=== PATIENT | male | born 1965 | race Two or more races ===

== ENCOUNTER 2019-10-15 15:40 | Emergency (ER) | payer MEDICAID ==
[~2019-10-15] VITALS: Ht 170.2 cm; Wt 67.1 kg
[2019-10-15] MEDS ORDERED: ONDANSETRON HCL/PF 4 MG/2 ML VIAL IVP ONE (16:00)
[2019-10-15] MEDS ORDERED: IV NS 0.9% 1,000 ML BAG IV ONE (16:00)
[2019-10-15] MEDS ORDERED: ONDANSETRON HCL/PF 4 MG/2 ML VIAL ONE (16:11)
[2019-10-15 16:17] LABS: BASOPHILS # (AUTO) 0.1 /CMM (0.0-0.2); BASOPHILS % (AUTO) 1.3 % (0.0-2.0); EOSINOPHILS % (AUTO) 0.4 % (0.0-6.0); HEMATOCRIT 43 % (39-51); HEMOGLOBIN 14.2 g/dL (13.5-17.5); LYMPHOCYTES # (AUTO) 2.3 /CMM (0.8-4.8); LYMPHOCYTES % (AUTO) 31.6 % (20.0-44.0); MEAN CORPUSCULAR HGB CONC 33 g/dl (31.0-36.0); MEAN CORPUSCULAR VOLUME 93 fL (80-96); MONOCYTES # (AUTO) 0.6 /CMM (0.1-1.30); MONOCYTES % (AUTO) 8.8 % (2.0-12.0); NEUTROPHILS # (AUTO) 4.2 /CMM (1.8-8.9); NEUTROPHILS % (AUTO) 57.9 % (43.0-81.0); RED BLOOD CELL COUNT(AUTO) 4.62 MIL/uL (4.5-6.0); WHITE BLOOD COUNT (AUTO) 7.3 K/uL (4.3-11.0)
--- NOTE | 2019-10-15 16:37 | NUR ---
PATIENT CAME IN TO THE ER C/O EPIGASTRIC PAIN W/ NAUSEA AND DIARRHEA THAT STARTED THIS MORNING. ON ROOM AIR, BREATHING EVENLY AND UNLABORED. CONNECTED TO THE MONITOR AND PULSE OX. KEPT COMFORTABLE, WILL CONTINUE TO MONITOR ACCORDINGLY.
[2019-10-15] MEDS ORDERED: IOHEXOL-300 100 ML VIAL IV ONE (16:40)
[2019-10-15] MEDS ORDERED: CT SWABBABLE VALVE TRANS SET 1 EA INFUS.SET MC ONE (16:40)
[2019-10-15] MEDS ORDERED: IV NS 0.9% 250 ML IV ONE (16:41)
[2019-10-15 16:42] LABS: CALCIUM, SERUM 9.3 mg/dL (8.5-10.1); CARBON DIOXIDE 28 mmol/L (21-32); CHLORIDE 103 mmol/L (98-107); CREATININE 0.9 mg/dL (0.6-1.3); GLUCOSE 105 mg/dL (74-106); POTASSIUM 3.9 mmol/L (3.5-5.1); SODIUM SERUM 141 mmol/L (136-145); UREA NITROGEN, BLOOD 16 mg/dL (7-18)
--- NOTE | 2019-10-15 16:43 | NUR ---
urine collected and sent to lab.
[2019-10-15 16:47] LABS: ALANINE AMINOTRANSFERASE 33 U/L (12-78); ALBUMIN 3.8 g/dL (3.4-5.0); ALKALINE PHOSPHATASE 69 U/L (46-116); ASPARTATE AMINOTRANSFERASE 29 U/L (15-37); BILIRUBIN,DIRECT 0.1 mg/dL (0.0-0.2); BILIRUBIN,TOTAL 0.3 mg/dL (0.2-1.0); LIPASE 186 U/L (73-393); TOTAL PROTEIN, SERUM 7.9 g/dL (6.4-8.2)
[2019-10-15 16:48] LABS: APPEARANCE,URINE Clear (CLEAR); BILIRUBIN,URINE Negative (NEGATIVE); BLOOD, URINE Trace-intact Ery/uL (NEGATIVE); COLOR,URINE Yellow (YELLOW); KETONES,URINE Negative (NEGATIVE); LEUKOCYTE ESTERASE ,URINE Negative (NEGATIVE); NITRITE, URINE Negative (NEGATIVE); PH,URINE 5.5 (5.0-8.0); PROTEIN,URINE Negative (NEGATIVE); UGLUCOSE Negative (NEGATIVE); UROBILINOGEN,URINE 0.2 EU/dL (0.2)
[2019-10-15 17:08] LABS: BACTERIA,URINE Rare /HPF (None Seen); RBC,URINE 2-4/HPF /HPF (0-2); SQUAMOUS EPITHELIAL CELL,UR Rare /HPF (None Seen); URINE AMORPHOUS URATE Rare /HPF (None Seen); WBC,URINE 0-2 /HPF (0-3)
[2019-10-15 17:27] LABS: PLATELET COUNT (AUTO) 289 /CMM (150-450)
[2019-10-15 17:54] VITALS: BP 128/72
--- NOTE | 2019-10-15 17:55 | NUR ---
Patient discharged to home in stable condition. Written and verbal after care instructions given. Patient verbalizes understanding of instruction.IV removed. Catheter intact and site benign. Pressure and 4x4 applied to site. No bleeding noted.
== END 2019-10-15 17:55 | disposition home or self-care (01) ==
LOC: ER 15:49
DX: R19.7 Diarrhea, unspecified (principal)
CPT/HCPCS: 36415; 71045; 74177; 80048; 80076; 81001; 83690; 84484; 85025; 85730; 93005; 96361; 96374; 99284; J2405; J7030; J7050; Q9967; 81000-TC

== ENCOUNTER 2019-11-10 18:09 | Emergency (ER) | payer MEDICAID ==
[~2019-11-10] VITALS: Ht 170.2 cm; Wt 68.9 kg
--- NOTE | 2019-11-10 18:42 | NUR ---
PT CAME TO ER BED 6 C/O FEELING SICK SINCE YESTERDAY MORNING. PT STATES THAT HE HAD A HIGH FEVER AND WAS HAVING SORE THROAT AND COUGHING. PT CURRENTLY HAS A TEMP OF 99.5. AAOX4. NO SOB. BREATHING EVENLY AND UNLABORED ON ROOM AIR. CONNECTED TO MONITOR.
--- NOTE | 2019-11-10 18:45 | NUR ---
SEEN AND EXAMINED BY
--- NOTE | 2019-11-10 18:50 | NUR ---
FLU SWAB SAMPLE TAKEN AND SENT TO LAB FOR TESTING
--- NOTE | 2019-11-10 18:52 | NUR ---
RT CALLED TO GIVE BREATHING TREATMENT
[2019-11-10] MEDS ORDERED: ALBUTEROL FS 2.5 MG/3 ML VIAL.NEB NEB ONE (19:00)
[2019-11-10] MEDS ORDERED: IPRATROPIUM NEB FS 0.5 MG/2.5 ML AMPUL.NEB NEB ONE (19:00)
--- NOTE | 2019-11-10 19:02 | NUR ---
BLOOD DRAWN AND SENT TO LAB
[2019-11-10 19:07] LABS: BASOPHILS % (AUTO) 0.1 % (0.0-2.0); EOSINOPHILS % (AUTO) 0.4 % (0.0-6.0); HEMATOCRIT 40 % (39-51); HEMOGLOBIN 13.3 g/dL (13.5-17.5); LYMPHOCYTES # (AUTO) 0.8 /CMM (0.8-4.8); LYMPHOCYTES % (AUTO) 15.3 % (20.0-44.0); MEAN CORPUSCULAR HGB CONC 33 g/dl (31.0-36.0); MEAN CORPUSCULAR VOLUME 92 fL (80-96); MONOCYTES # (AUTO) 0.6 /CMM (0.1-1.30); NEUTROPHILS # (AUTO) 3.8 /CMM (1.8-8.9); NEUTROPHILS % (AUTO) 72.2 % (43.0-81.0); PLATELET COUNT (AUTO) 200 /CMM (150-450); RED BLOOD CELL COUNT(AUTO) 4.37 MIL/uL (4.5-6.0); WHITE BLOOD COUNT (AUTO) 5.3 K/uL (4.3-11.0)
[2019-11-10] MEDS ORDERED: IPRATROPIUM NEB FS 0.5 MG/2.5 ML AMPUL.NEB ONE (19:07)
[2019-11-10] MEDS ORDERED: ALBUTEROL FS 2.5 MG/3 ML VIAL.NEB ONE (19:07)
[2019-11-10 19:15] LABS: CALCIUM, SERUM 9.3 mg/dL (8.5-10.1); CREATININE 0.7 mg/dL (0.6-1.3); POTASSIUM 3.9 mmol/L (3.5-5.1)
--- NOTE | 2019-11-10 20:29 | NUR ---
IV removed. Catheter intact and site benign. Pressure and 4x4 applied to site. No bleeding noted. Patient discharged to home in stable condition. Written and verbal after care instructions given. Patient verbalizes understanding of instruction.
[2019-11-10 20:30] VITALS: BP 137/88
== END 2019-11-10 20:30 | disposition home or self-care (01) ==
LOC: ER 18:15
DX: J11.1 Influenza due to unidentified influenza virus with other respiratory manifestations (principal); D64.9 Anemia, unspecified; F17.210 Nicotine dependence, cigarettes, uncomplicated
CPT/HCPCS: 36415; 71045-TC; 80048-TC; 85025-TC; 87040-TC

== ENCOUNTER 2019-11-13 14:32 | Emergency (ER) | payer MEDICAID ==
[~2019-11-13] VITALS: Ht 170.2 cm; Wt 68.9 kg
--- NOTE | 2019-11-13 14:47 | NUR ---
PT AAOX4. AMBULATORY WITH STEADY GAIT. BIBSELF C/O RLQ ABD PAIN X1 DAY. PT STATES PAIN IS "ALL OVER" BUT WHEN ASKED PT POINTED AT RLQ. 7/10 PAIN. PLACED ON MONITOR AND PULSE OX. VSS. NO ACUTE DISTRESS NOTED. AWAITING MD FOR EVAL.
--- NOTE | 2019-11-13 14:56 | NUR ---
URINE SENT TO LAB
[2019-11-13 15:18] LABS: APPEARANCE,URINE Clear (CLEAR); BILIRUBIN,URINE Negative (NEGATIVE); BLOOD, URINE Negative Ery/uL (NEGATIVE); COLOR,URINE Yellow (YELLOW); KETONES,URINE Negative (NEGATIVE); LEUKOCYTE ESTERASE ,URINE Negative (NEGATIVE); NITRITE, URINE Negative (NEGATIVE); PROTEIN,URINE Negative (NEGATIVE); UGLUCOSE Negative (NEGATIVE); UROBILINOGEN,URINE 0.2 EU/dL (0.2)
[2019-11-13 15:26] LABS: BASOPHILS % (AUTO) 0.2 % (0.0-2.0); EOSINOPHILS % (AUTO) 0.4 % (0.0-6.0); HEMATOCRIT 37 % (39-51); HEMOGLOBIN 12.6 g/dL (13.5-17.5); LYMPHOCYTES # (AUTO) 1.7 /CMM (0.8-4.8); MEAN CORPUSCULAR HGB CONC 34 g/dl (31.0-36.0); MEAN CORPUSCULAR VOLUME 93 fL (80-96); MONOCYTES # (AUTO) 0.5 /CMM (0.1-1.30); MONOCYTES % (AUTO) 15.4 % (2.0-12.0); NEUTROPHILS # (AUTO) 1.1 /CMM (1.8-8.9); PLATELET COUNT (AUTO) 163 /CMM (150-450); RED BLOOD CELL COUNT(AUTO) 4.04 MIL/uL (4.5-6.0); WHITE BLOOD COUNT (AUTO) 3.3 K/uL (4.3-11.0)
--- NOTE | 2019-11-13 15:33 | NUR ---
Patient is resting comfortably in bed. Easily aroused. VSS.
[2019-11-13 15:35] LABS: CALCIUM, SERUM 8.3 mg/dL (8.5-10.1); CREATININE 0.7 mg/dL (0.6-1.3); POTASSIUM 3.6 mmol/L (3.5-5.1)
[2019-11-13 15:41] LABS: ALBUMIN 2.9 g/dL (3.4-5.0); BILIRUBIN,TOTAL 0.2 mg/dL (0.2-1.0); TOTAL PROTEIN, SERUM 6.7 g/dL (6.4-8.2)
[2019-11-13 16:36] LABS: EOSINOPHILS % (MANUAL) 1 % (0-4); LYMPHOCYTES % (MANUAL) 35 % (16-48); MONOCYTES % (MANUAL) 25 % (0-11.0); NEUTROPHILS % (MANUAL) 39 (42-76)
--- NOTE | 2019-11-13 18:06 | NUR ---
RESTING IN BED COMFORTABLY. VSS.
[2019-11-13 18:17] VITALS: BP 128/72
--- NOTE | 2019-11-13 18:17 | NUR ---
Patient discharged to home in stable condition. Written and verbal after care instructions given. Patient verbalizes understanding of instruction and RX. vss. No acute distress noted. Ambulated with steady gait.
== END 2019-11-13 18:18 | disposition home or self-care (01) ==
LOC: ER 14:35
DX: R10.84 Generalized abdominal pain (principal); F17.200 Nicotine dependence, unspecified, uncomplicated
CPT/HCPCS: 36415; 71045-TC; 80048-TC; 80076-TC; 81000-TC; 83690-TC; 85025-TC

== ENCOUNTER 2020-05-11 12:03 | Emergency (ER) | payer SELFPAY ==
[~2020-05-11] VITALS: Ht 177.8 cm; Wt 73.9 kg
[2020-05-11 12:22] VITALS: BP 154/94
== END 2020-05-11 14:03 | disposition home or self-care (01) ==
LOC: ER 12:03
DX: K04.7 Periapical abscess without sinus (principal); M27.3 Alveolitis of jaws; J45.909 Unspecified asthma, uncomplicated